=== PATIENT | female | born 1945 | race Caucasian/White ===

== ENCOUNTER → 2016-11-21 | Outpatient (CLI) | payer MEDICARE, BC ==
--- NOTE | 2016-11-22 06:35 | PN ---
Payal is coming in for an annual check regarding obstructive sleep apnea. She continues to have successful CPAP therapy with a pressure of 7 cm of water. She is using a Buck FX small size nose pillow. Her compliance is 100% and she is averaging around 7 to 8 hours of sleep ( ) every night. No complaints. No concerns. She had only 5 pounds of weight gain over the past one year. No new onset medical problems or comorbidities since her last evaluation. BP is 135/60, pulse 85, respirations 16, temperature 97.6. BMI 31. Weight is 181. Height is 5 feet 4 inches. Garland score 12. Saturation 97% on room air. GENERAL APPEARANCE: Calm, comfortable. HEENT: Negative for JVD. No goiter or neck mass. LUNGS: Clear to auscultation. HEART: Sounds regular rate and rhythm. Normal S1, S2. ABDOMEN: Soft, nontender. No organomegaly. EXTREMITIES: No edema, cyanosis or clubbing. IMPRESSION: 1. Obstructive sleep apnea, continues to receive successful CPAP therapy with a pressure of 7 cm of water. 2. Obesity with an interval 5-pound weight gain. The patient is status post bariatric surgery. 3. Pulmonary embolism, history of. 4. Congestive heart failure, history of. 5. Gastroesophageal reflux disease. 6. Hyperlipidemia. 7. Peripheral neuropathy. 8. Chronic back pain. PLAN: 1. Continue with CPAP therapy at the same level of pressure. 2. Renew her CPAP supplied. 3. See me back in a year's time, earlier if needed. DEVONTE
== END | disposition home or self-care (01) ==
LOC: SLEEP 16:13
PROVIDERS: ATTEND Internal Medicine Critical Care Medicine
DX: G47.33 Obstructive sleep apnea (adult) (pediatric) (principal); K21.9 Gastro-esophageal reflux disease without esophagitis; E66.9 Obesity, unspecified; E78.5 Hyperlipidemia, unspecified; G62.9 Polyneuropathy, unspecified; M54.9 Dorsalgia, unspecified; G89.29 Other chronic pain; Z86.711 Personal history of pulmonary embolism; Z86.79 Personal history of other diseases of the circulatory system

== ENCOUNTER → 2017-12-04 | Outpatient (CLI) | payer MEDICARE, BC ==
--- NOTE | 2017-12-04 18:38 | PN ---
PROGRESS NOTE Payal is 72 and she is coming in for her annual check regarding obstructive sleep apnea. The patient has AME and she is currently on CPAP at a pressure of 7 cm of water. She is still using a Buck FX small size nose pillow. Based on the compliance data, she is averaging around 5 hours and 42 minutes of CPAP use every night and her CPAP use for more than 4 hours is 29/30. Her weight is down from 181 to 173 and as such, the patient has lost approximately 8 pounds. She is doing well. She wakes up refreshed and alert during the day. No major hypersomnia or sleepiness during the day. No new onset medical problems and comorbidities. Her health has been essentially the same and the patient has been utilizing her CPAP without any major difficulties. She has history of pulmonary embolism and congestive heart failure, along with history of hyperlipidemia, peripheral neuropathy and chronic back pain. REVIEW OF SYSTEMS: A 12-point review of system was done. Positive findings are mentioned above history of present illness. BP is 113/55, pulse 80, respirations 16, temperature 97.9, saturation 95% on room air. BMI 30.1, Cary score is 7. GENERAL APPEARANCE: Calm, comfortable. Head is atraumatic normocephalic. NECK: Supple. There is no JVD. There is no goiter or neck mass. LUNGS: Clear to auscultation. HEART: Sounds are regular rate and rhythm. Normal S1, S2. No S3. No murmurs. ABDOMEN: Soft, nontender. No organomegaly. EXTREMITIES: No edema. No cyanosis or clubbing. NEUROLOGIC: Alert and oriented x3. There are no focal neurological deficits. PSYCHIATRIC: Negative for anxiety or depression. IMPRESSION: 1. Obstructive sleep apnea with successful CPAP therapy at a pressure of 7 cm of water with excellent clinical response and compliance. 2. Hypersomnia improved with CPAP therapy. 3. Pulmonary embolism, history of. 4. Congestive heart failure, history of. 5. Gastroesophageal reflux disease. 6. Hyperlipidemia. 7. Peripheral neuropathy and. 8. Chronic back pain. PLAN: 1. Continue CPAP at same level of pressure. No need for any adjustment as long as treatment remains successful and the machine is functional. 2. Renew the CPAP mask and supplies, including Buck FX small-sized nasal pillow. 3. Weight loss was noted. Implement good sleep hygiene measures. See me back in a few years' time in follow up, earlier if needed. MMEPIL / IJN: [id number] /
== END | disposition home or self-care (01) ==
LOC: SLEEP 15:40
PROVIDERS: ATTEND Internal Medicine Critical Care Medicine
DX: G47.33 Obstructive sleep apnea (adult) (pediatric) (principal); I26.99 Other pulmonary embolism without acute cor pulmonale; I50.9 Heart failure, unspecified; K21.9 Gastro-esophageal reflux disease without esophagitis; E78.5 Hyperlipidemia, unspecified; G62.9 Polyneuropathy, unspecified; G89.29 Other chronic pain; M54.9 Dorsalgia, unspecified; Z99.89 Dependence on other enabling machines and devices

== ENCOUNTER → 2018-10-24 | Outpatient (CLI) | payer MEDICARE ==
[2018-10-24 14:25] VITALS: BP 117/61; PULSE 84; RESP 18; TEMP 98.3; BMI 27.4
--- NOTE | 2018-10-24 15:15 | P.GSHP ---
History of Present Illness H&P Date: 10/24/18 Chief Complaint: Abnormal left breast mammogram The patient is a 73 year old white female who underwent routine screening mammogram was noted to have an area of microcalcification which was new in the 3 o'clock position of the left breast. The patient does not have any pain in her breast. She has no masses in her breast. She has no nipple discharge or skin changes. She states her last mammogram was a year ago and this did not show anything of concern. She did have an ultrasound performed as well which did not show any lesions of concern. Family history: 1.daughter (2): ovarian cancer Hormonal history: Menarche:7 , 7 miscarrages, breast fed: yes, first live : 13 menopause: 48 BCP: 4 years hormones: none Past past surgical history: 1. stomach bypass 2. gallbladder 3. appy 4. tonsil 5. leg fracture 6. left shoulder fx 7. carotid (right) Past Medical History; 1. ? diabetes, not treated 2. rapid heart beat/atrial fib 3. Reflux 4. history of Pulmonary embolism 5. sleep apnea 6. COPD 7. arthritis 8. 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, follows with spearer Cardiovascular: Reports high blood pressure - Respiratory Comment: asthma, COPD - Gastrointestinal Gastrointestinal: Reports diarrhea - Genitourinary (Female) Genitourinary: Denies dysuria, Denies hematuria - Menstruation Menstruation: Reports postmenopausal - Musculoskeletal Comment: arthritis, fibromyalgia Musculoskeletal: Reports myalgias - Integumentary Integumentary: Denies pruritus, Denies rash - Neurological Comment: Carotid endarterectomy Neurological: Denies numbness, Denies weakness - Psychiatric Psychiatric: Reports anxiety - Endocrine Endocrine: Reports fatigue, Denies weight change - Hematologic/Lymphatic Comment: Plavix - Allergic/Immunologic Allergic/Immunologic: Reports seasonal allergies Past Medical History Past Medical History: Atrial Fibrillation, COPD, Fibromyalgia, GERD/Reflux, Hypertension, Pneumonia, Pulmonary Embolus (PE), Rheumatoid Arthritis (RA), Sleep Apnea/CPAP/BIPAP, Vascular Disorder Additional Past Medical History / Comment(s): Tachycardia, PE in the 1970's, pneumonia x 4, migraines, hiatal hernia, loose stools, degenerative joint disease, anemia, peripheral artery disease,cpap, pre diabetic History of Any Multi-Drug Resistant Organisms: None Reported Past Surgical History: Appendectomy, Bariatric Surgery, Cholecystectomy, Hernia Repair, Hysterectomy, Orthopedic Surgery, Tonsillectomy Additional Past Surgical History / Comment(s): stomach bypass, left shoulder fx- pin, dariel cataracts, carotid endarectomy Past Anesthesia/Blood Transfusion Reactions: Motion Sickness Past Psychological History: No Psychological Hx Reported Smoking Status: Never smoker Past Alcohol Use History: None Reported Past Drug Use History: None Reported - Past Family History Daughter(s) Family Medical History: Cancer Father Family Medical History: Diabetes Mellitus Additional Family Medical History / Comment(s): alcoholism Mother Family Medical History: Deep Vein Thrombosis (DVT) Additional Family Medical History / Comment(s): None reported Medications and Allergies Home Medications Medication Instructions Recorded Confirmed Type Fluticasone Propionate [Flonase] 1 spray EA NOSTRIL DAILY PRN 04/21/14 10/18/18 History Gabapentin 300 mg PO QID 04/21/14 10/18/18 History Propranolol [Inderal] 40 mg PO QAM 04/21/14 10/18/18 History Ranitidine HCl [Zantac] 150 mg PO BID 04/21/14 10/18/18 History Atorvastatin [Lipitor] 80 mg PO HS 02/10/16 10/18/18 History Clopidogrel Bisulfate [Plavix] 75 mg PO DAILY 02/10/16 10/18/18 History Furosemide [Lasix] 40 mg PO QAM 02/10/16 10/18/18 History Multivit-Min/FA/Lycopen/Lutein 1 tab PO DAILY 02/10/16 10/18/18 History [Centrum Silver Tablet] Gilbert-3 Fatty Acids/Fish Oil [Fish 1 cap PO DAILY 02/10/16 10/18/18 History Oil 1,000 mg Softgel] Potassium Chloride [Klor-Con 10] 10 meq PO BID 02/10/16 10/18/18 History Fluticasone/Salmeterol [Advair 1 puff INHALATION RT-BID 12/04/16 06/14/19 History 250-50 Diskus] Cholecalciferol [Vitamin D3 (25 1,000 unit PO BID 10/18/18 10/18/18 History Mcg = 1000 Iu)] Allergies Allergy/AdvReac Type Severity Reaction Status Date / Time Penicillins AdvReac Severe Swelling Verified 10/24/18 14:27 house dust AdvReac SINUS PAIN Verified 10/24/18 14:27 smoke AdvReac Dyspnea Uncoded 10/24/18 14:27 Surgical - Exam Vital Signs Temp Pulse Resp BP Pulse Ox 98.3 F 84 18 117/61 97 10/24/18 14:18 10/24/18 14:18 10/24/18 14:18 10/24/18 14:18 10/24/18 14:18 BMI 27.4 - General well developed, well nourished, no distress - Eyes normal ocular movement - ENT poor dentition no hearing loss, no congestion - Neck no masses, trachea midline - Respiratory normal respiratory effort, clear to percussion, clear to auscultation - Cardiovascular Rhythm: regular Heart Sounds: normal: S1, S2 - Abdomen Abdomen: soft, non tender, no guarding, no rigid, no rebound - Integumentary normal turgor - Neurologic no disoriented, no combative - Musculoskeletal normal gait, normal posture - Psychiatric oriented to time, oriented to person, oriented to place, speech is normal, memory intact breast exam: right breast: Multi-positional exam no dominant masses or nodules of concern, fibrocystic changes Right axilla: No adenopathy of concern Left breast: Multiple positional exam no dominant masses or nodules of concern Left axilla: No adenopathy of concern Between the breast there is what appears to be seborrheic keratosis with some irritation BRA 40DDD Patient gets indentations in her shoulders from the weight of her breast and she also has back pain related to her large breast. Results Mammogram report reviewed Assessment and Plan Assessment: Impression: Past Medical History; 1. ? diabetes, not treated 2. rapid heart beat/atrial fib 3. Reflux 4. history of Pulmonary embolism 5. sleep apnea 6. COPD 7. arthritis 8. HTN 9. Abnormal mammogram left breast 10. Very large breasted consulting and back pain and shoulder notching 11. Fibrocystic breast changes Risks and benefits of stereotactic core biopsy discussed with the patient. She wishes to proceed. Plan: 1. Stereotactic core biopsy left breast 2. Patient would like to have breast reduction secondary to back pain and shoulder notching from the large size of her breast 3. Medical management of medical conditions 4. Patient will stop Plavix for 1 week prior to the stereotactic core biopsy have also recommended that she stop her fish oil, she should clear this with her medical doctor prior to stopping it Cc: Dr. Moses Sanz
== END | disposition home or self-care (01) ==
LOC: WWCWWP 13:17
PROVIDERS: ATTEND Surgery
DX: Z53.9 Procedure and treatment not carried out, unspecified reason (principal)

== ENCOUNTER 2018-11-01 12:47 | Day surgery (SDC) | payer BC, MEDICARE ==
[2018-11-01 13:03] VITALS: BP 133/67; PULSE 94; RESP 20; TEMP 97.7
--- NOTE | 2018-11-01 16:40 | US ---
EXAMINATION TYPE: US FNA thyroid first lesion DATE OF EXAM: 11/01/2018 COMPARISON: NONE HISTORY: Thyroid nodule. Maximal barrier technique was utilized. After informed consent, skin overlying the lesion was locali zed with ultrasound and the overlying skin prepped and draped. Ultrasound was utilized using sterile technique. Lidocaine was used for local anesthesia. Five passes with a 25-gauge needle were made int o the right-sided nodule and aspirated specimen was submitted to cytology. Following the procedure h emostasis achieved. No immediate complication. The patient discharged in stable condition. IMPRESSION: STATUS POST ULTRASOUND GUIDED FINE NEEDLE ASPIRATION OF THYROID NODULE, PATHOLOGY IS PEND ING. THIS PROCEDURE WAS PERFORMED BY THE UNDERSIGNED.
== END 2018-11-01 13:55 | disposition home or self-care (01) ==
LOC: RADPROMAIN 12:47
PROVIDERS: ATTEND Surgery Plastic and Reconstructive Surgery
DX: E04.1 Nontoxic single thyroid nodule (principal); Z88.0 Allergy status to penicillin
CPT/HCPCS: 10005; 88173; 88305

== ENCOUNTER → 2018-11-21 | Day surgery (SDC) | payer MEDICARE ==
[2018-11-21 07:28] VITALS: RESP 16; TEMP 97.7; BMI 65.2
--- NOTE | 2018-11-21 08:47 | P.PCN ---
Date of Procedure: 11/21/18 Preoperative Diagnosis: Mammographic abnormality left breast Postoperative Diagnosis: Same Procedure(s) Performed: Stereotactic core biopsy left breast Anesthesia: local Surgeon: Bessie Vila Estimated Blood Loss (ml): 1 Pathology: other (Breast tissue) Condition: stable Disposition: same day Indications for Procedure: Course in fine microcalcifications left breast 3:00 which are suspicious Operative Findings: Breast tissue with calcifications Description of Procedure: The patient is a 73-year-old white female who on mammogram was noted to have coarse and fine calcifications considered suspicious at the 3 o'clock position of the left breast. The patient was recommended to undergo a stereotactic core biopsy. The risks and benefits of the procedure were discussed with the patient and she wished to proceed. The patient was taken to the stereotactic core room. She was positioned on the stereotactic table. A lateral to medial approach was utilized. A photographic restorer film was obtained which revealed the area of concern. Sterile probe was then obtained. The lesion was targeted. The breast was prepped using Betadine. 20 mL of 1% lidocaine were used to anesthetize the area. A 9-gauge vacuum assisted rotating core biopsy needle was driven to the correct coordinates. The needle was fired. Post fire films were obtained. The needle was noted to be in the correct location. Core biopsies from the 3 to 9 o'clock position with 2 samples at the 12 o'clock position were obtained. 7 cores were obtained in total. Radiograph of the specimen revealed the area of concern had been sampled. Microcalcifications were present in the specimen. A secure marked top Marker was left in place. The specimen was sent to pathology. The patient tolerated procedure in stable condition. The patient will follow-up with Dr. Galindo next week. Cc Dr. Moses Sanz
[2018-11-21 09:17] VITALS: BP 115/71; PULSE 73
--- NOTE | 2018-11-21 09:29 | MM ---
EXAMINATION TYPE: MG stereo VAD BX LT DATE OF EXAM: 11/21/2018 COMPARISON: Outside mammogram Sep 11 2018 and older mammograms. CLINICAL HISTORY: Abnormal mammogram TECHNIQUE: Stereotactic guided core biopsy of left breast with clip placement and follow-up two-view mammogram. FINDINGS: The procedure of stereotactic guided core biopsy was explained to the patient. Benefits, alternatives, and risks were discussed. An informed consent was then obtained. [facility]. Shortness pathway was lateral approach. I performed the localization, then surgeon, Dr. Vila performed the remainder of the procedure. A vacuum assisted biopsy gun was used to obtain multiple core samples. The patient tolerated the procedure well without any immediate complication. The patient was kept in the radiology department for short stay after the procedure and then discharged home in stable condition. Targeted calcifications are identified in specimen mammogram. Post biopsy mammogram shows the clip to appear in satisfactory position relative to the targeted area of concern on the preprocedure images. Few residual adjacent calcifications remain present on CC view. IMPRESSION: SUCCESSFUL, UNCOMPLICATED STEREOTACTIC GUIDED CORE BIOPSY OF AREA OF CONCERN IN THE LEFT BREAST, FULL PATHOLOGY RESULTS TO FOLLOW. Intermediate index of suspicion noted at time of procedure. Pathology Results: Benign LEFT BREAST, STEREOTACTIC CORE BIOPSY: Fibrocystic changes including fibroadenomatoid hyperplasia with calcifications. Recommendation Follow up mammogram of the left breast in 6 months. DEVONTE
== END ==
LOC: RADMAMWWP 06:49
PROVIDERS: ATTEND Surgery
DX: N60.12 Diffuse cystic mastopathy of left breast (principal); N62 Hypertrophy of breast; R92.1 Mammographic calcification found on diagnostic imaging of breast; Z88.0 Allergy status to penicillin
CPT/HCPCS: 88305; 19081; A4648; J2001

== ENCOUNTER → 2018-11-29 | Outpatient (CLI) | payer MEDICARE ==
--- NOTE | 2018-11-29 10:11 | P.PN ---
Subjective Progress Note Date: 11/29/18 The patient is a 73-year-old white female status post left breast stereotactic core biopsy and 1980[address]. Pathology revealed fibrocystic changes including fibroadenomatoid hyperplasia with calcifications. Patient complains of some mild ecchymosis at the site with some swelling. She has had no fever or chills. Family history: 2 Daughters: Ovarian cancer Sister: Breast cancer Past surgical history: 1. Stomach bypass 2. Cholecystectomy 3. Appendectomy 4. Tonsillectomy 5. Leg fracture 6. Left shoulder fracture 7. Carotid weight Medical history: 1. Questionable diabetes 2. Atrial flutter 3. Reflux 4. Pulmonary embolism 5. Sleep apnea 6. COPD 7. Arthritis 8. Hypertension Social history: Smoke: Negative A call: Negative Drugs: Negative Objective - Exam BMI 29.2 - Constitutional General appearance: Present: average body habitus - EENT Eyes: Present: EOMI ENT: Present: hearing grossly normal - Respiratory Respiratory: bilateral: CTA - Cardiovascular Heart sounds: normal: S1, S2 - Integumentary Integumentary: Present: normal turgor - Musculoskeletal Musculoskeletal: Present: gait normal - Psychiatric Psychiatric: Present: A&O x's 3, appropriate affect, intact judgment & insight - Additional findings Additional findings: Left breast exam: Mild ecchymosis at site of biopsy, hematoma at this site approximately 4 x 3 cm in size No evidence of any infection Assessment and Plan Assessment: Impression: 1. Questionable diabetes 2. Atrial flutter 3. Reflux 4. Pulmonary embolism 5. Sleep apnea 6. COPD 7. Arthritis 8. Hypertension 9. Patient is restarting Plavix 10. Core biopsy fibrocystic breast changes We have discussed the results of her core biopsy. There is no evidence of any cancer or precancer. The patient will have follow-up mammogram of the left side in 6 months with physician exam at that time. Plan: 1. Restart Plavix 2. Medical management of medical conditions 3. Left breast mammogram and physician exam in 6 months Cc: Dr. Moses Sanz
== END | disposition home or self-care (01) ==
DX: Z53.9 Procedure and treatment not carried out, unspecified reason (principal)

== ENCOUNTER → 2019-01-16 | Outpatient (CLI) | payer MEDICARE ==
[2019-01-17 01:45] LABS: T4, Free (Free Thyroxine) 0.9 ng/dL (0.80-1.80)
== END | disposition home or self-care (01) ==
LOC: LABWHC1 14:26
PROVIDERS: ATTEND Internal Medicine
DX: E04.2 Nontoxic multinodular goiter (principal)
CPT/HCPCS: 36415; 84439; 84443

== ENCOUNTER → 2019-05-30 | Outpatient (CLI) | payer MEDICARE ==
--- NOTE | 2019-05-30 09:16 | MM ---
Reason for exam: follow-up at short interval from prior study. Last mammogram was performed 21 years and 1 month ago. History: Patient is postmenopausal. Benign MG stereo VAD BX LT of the left breast, November 21, 2018. Took estrogen for 1 year 6 months. Physical Findings: Nurse did not find any significant physical abnormalities on exam. MG 3D Diag Mammo W/Cad LT CC and MLO view(s) were taken of the left breast. Prior study comparison: September 11, 2018, mammogram. September 04, 2018, mammogram. March 08, 2017, mammogram. March 02, 2017, mammogram. The breast tissue is heterogeneously dense. This may lower the sensitivity of mammography. There are benign appearing round calcifications in the left breast. Previous mammotome biopsy in the left breast. There is no discrete abnormality. These results were verbally communicated with the patient and result sheet given to the patient on 05/30/19. ASSESSMENT: Benign, BI-RAD 2 RECOMMENDATION: Routine screening mammogram of both breasts in 6 months. Back on schedule.
== END | disposition home or self-care (01) ==
LOC: RADMAMWWP 06:51
PROVIDERS: ATTEND Surgery
DX: R92.8 Other abnormal and inconclusive findings on diagnostic imaging of breast (principal)
CPT/HCPCS: 77065; G0279; 77061

== ENCOUNTER → 2019-07-10 | Outpatient (CLI) | payer MEDICARE ==
--- NOTE | 2019-07-03 09:33 | P.PN ---
Progress Note - Text Progress Note Date: 07/03/19 Patient is a 73-year-old [place] [id number]. She had a repeat left breast mammogram performed for 6 month follow-up [id number]. This was benign BIRADS 2. The patient lives approximately an hour away and there was a considerable snow last evening making the roads snowy and icy. The patient has requested rescheduling her appointment. I have talked to over this phone. She understands that the results of the mammogram with benign BIRADS 2. She also states does not have any complaints related to her breasts. She is going to reschedule this appointment.
[2019-07-10 12:34] VITALS: BP 120/74; PULSE 72; RESP 18; TEMP 97.6
--- NOTE | 2019-07-10 12:55 | P.PN ---
Subjective Progress Note Date: 07/10/19 Principal diagnosis: Surveillance status post left breast stereotactic core biopsy November 2018 The patient is a 73-year-old white female status post left breast stereotactic core biopsy on . Pathology revealed fibrocystic changes including fibroadenomatoid hyperplasia with calcifications. The patient underwent her 6 month repeat left breast mammogram on 53 420. This was a benign BIRADS 2. The patient does not have any complaints related to the procedure. She was i nitially scheduled for postoperative visit on 220 720 but was unable to come to that appointment secondary to poor weather. Family history: 2 Daughters: Ovarian cancer Sister: Breast cancer Hormonal History: menarche: 7 , 7 miscarriages, breast fed: yes, first born at 13 menopause: 53 BCP: 4 years hormones: none Past surgical history: 1. Stomach bypass 2. Cholecystectomy 3. Appendectomy 4. Tonsillectomy 5. Leg fracture 6. Left shoulder fracture 7. Carotid artery Medical history: 1. Questionable diabetes 2. Atrial flutter 3. Reflux 4. Pulmonary embolism 5. Sleep apnea 6. COPD 7. Arthritis 8. Hypertension ROS: HEENT: none lung: asthma, pulmonary embolism heart: atrial flutter GI: Gastric bypass/reversal Musculoskeletal: arthritis neurologic: numbness tops of legs Psychiatric: Anxiety/depression Endocrine: diabetes diet controlled Allergies: as per HPI/seasonal ALLERGIES Hematologic: Plavix Social history: Smoke: Negative A call: Negative Drugs: Negative Objective - Vital Signs Vital signs: Vital Signs Temp 97.6 F 07/10/19 12:32 Pulse 72 07/10/19 12:32 Resp 18 07/10/19 12:32 BP 120/74 07/10/19 12:32 Pulse Ox 95 07/10/19 12:32 Intake & Output 07/09/19 07/10/19 07/10/19 18:59 06:59 18:59 Weight 77.111 kg - Exam BMI 29.6 - Constitutional General appearance: Present: average body habitus - EENT Eyes: Present: EOMI ENT: Present: hearing grossly normal - Neck Neck: Present: normal ROM - Respiratory Respiratory: bilateral: CTA - Cardiovascular Rhythm: regular Heart sounds: normal: S1, S2 - Gastrointestinal Gastrointestinal Comment(s): no guarding or rebound General gastrointestinal: Present: normal bowel sounds, soft - Integumentary Integumentary: Present: normal turgor - Musculoskeletal Musculoskeletal: Present: gait normal - Psychiatric Psychiatric: Present: A&O x's 3, appropriate affect, intact judgment & insight - Additional findings Additional findings: breast exam: BRA 38E ptosis grade 3 inspection: moles between the breast non-worrisome nipples no inversion, no lesions of concern Palpation: Right breast: Multi-positional exam fibrocystic changes no dominant masses or nodules of concern Right axilla: No adenopathy of concern Left breast: Multiple positional exam no dominant masses or nodules of concern Left axilla: No adenopathy of concern Assessment and Plan Assessment: Impression: 1. Macromastia 2. Back pain 3. Shoulder notching 4. Fibrocystic breast changes 5. Recent repeat left breast mammogram BIRADS 2 6. Questionable diabetes 7. Atrial flutter 8. Reflux 9. Pulmonary embolism 10. Sleep apnea 11. COPD 12. Arthritis 13. Hypertension Plan: 1. Repeat bilateral mammogram in 6 months for physician exam at that time 2. Medical management of medical conditions 3. Patient to see plastic surgery regarding bilateral breast reduction secondary to macromastia/back pain/shoulder notching Cc: Dr. Moses Sanz encounter 20 minutes > 50% of time in planning and counselling Time with Patient: Less than 30
== END ==
LOC: WWCWWP 12:20
PROVIDERS: ATTEND Surgery
DX: Z53.9 Procedure and treatment not carried out, unspecified reason (principal)

== ENCOUNTER → 2019-12-01 | Outpatient (CLI) | payer MEDICARE ==
--- NOTE | 2019-12-04 15:15 | MM ---
Reason for exam: screening (asymptomatic). Last mammogram was performed 6 months ago. History: Patient is postmenopausal. Family history of breast cancer in sister at age 70. Benign MG stereo VAD BX LT of the left breast, November 21, 2018. Took hormonal contraceptives for 8 years. Took estrogen for 1 year 6 months. Physical Findings: A clinical breast exam by your physician is recommended on an annual basis and results should be correlated with mammographic findings. MG 3D Screening Mammo W/Cad Bilateral CC and MLO view(s) were taken. Prior study comparison: May 30, 2019, left breast MG 3d diag mammo w/cad LT. September 11, 2018, mammogram. March 02, 2017, mammogram. There are scattered fibroglandular densities. No significant changes when compared with prior studies. ASSESSMENT: Benign, BI-RAD 2 RECOMMENDATION: Routine screening mammogram of both breasts in 1 year.
== END | disposition home or self-care (01) ==
LOC: RADMAMWWP 09:23
PROVIDERS: ATTEND Surgery
DX: Z12.31 Encounter for screening mammogram for malignant neoplasm of breast (principal)
CPT/HCPCS: 77063; 77067

== ENCOUNTER → 2019-12-05 | Outpatient (CLI) | payer MEDICARE ==
--- NOTE | 2019-12-05 13:28 | P.PN ---
Subjective Progress Note Date: 12/05/19 Principal diagnosis: Fibrocystic breast changes The patient is a 73 year old white female who underwent routine screening mammogram was noted to have an area of microcalcification which was new in the 3 o'clock position of the left breast. This resulted in a stero biopsy November 2018. Her pathology was benign. She had a repeat left breast mammogram on 05-30-19 which was benign. She most recently had a bilateral mammogram performed on 720 720. This was benign BIRADS 2. The patient does not have any pain in her breast. She has no masses in her breast. She has no nipple discharge or skin changes. She does complain of back pain related to the size of her breasts. She also complains of bilateral shoulder notching from her bra related to the size of her breast. Family history: 1.daughter (2): ovarian cancer Hormonal history: Menarche:7 , 7 miscarrages, breast fed: yes, first live : 13 menopause: 48 BCP: 4 years hormones: none Past past surgical history: 1. stomach bypass 2. gallbladder 3. appy 4. tonsil 5. leg fracture 6. left shoulder fx 7. carotid (right) Past Medical History; 1. ? diabetes, not treated 2. rapid heart beat/atrial fib 3. Reflux 4. history of Pulmonary embolism 5. sleep apnea 6. COPD 7. arthritis 8. 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, follows with manager regional Cardiovascular: Reports high blood pressure - Respiratory Comment: asthma, COPD - Gastrointestinal Gastrointestinal: Reports diarrhea - Genitourinary (Female) Genitourinary: Denies dysuria, Denies hematuria - Menstruation Menstruation: Reports postmenopausal - Musculoskeletal Comment: arthritis, fibromyalgia Musculoskeletal: Reports myalgias - Integumentary Integumentary: Denies pruritus, Denies rash - Neurological Comment: Carotid endarterectomy Neurological: Denies numbness, Denies weakness - Psychiatric Psychiatric: Reports anxiety - Endocrine Endocrine: Reports fatigue, Denies weight change - Hematologic/Lymphatic Comment: Plavix - Allergic/Immunologic Allergic/Immunologic: Reports seasonal allergies Objective - Vital Signs Vital signs: Intake & Output 12/04/19 12/05/19 12/05/19 18:59 06:59 18:59 Weight 78.018 kg - Exam BMI 29.1 - Constitutional General appearance: Present: average body habitus - EENT Eyes: Present: EOMI ENT: Present: hearing grossly normal - Neck Neck: Present: normal ROM - Respiratory Respiratory: bilateral: CTA - Cardiovascular Rhythm: regular Heart sounds: normal: S1, S2 - Gastrointestinal General gastrointestinal: Present: normal bowel sounds, soft - Integumentary Integumentary: Present: normal turgor - Musculoskeletal Musculoskeletal: Present: gait normal - Psychiatric Psychiatric: Present: A&O x's 3, appropriate affect, intact judgment & insight - Additional findings Additional findings: Breast exam: BRA 38E inspection: bilateral ptosis grade 2/3 palpation: right breast: Multi-positional exam no dominant masses or nodules of concern, dense breast fibrocystic changes Right axilla: No adenopathy of concern Left breast: Multi-positional exam dense breast, fibrocystic changes no dominant masses or nodules of concern Left axilla: No adenopathy of concern Assessment and Plan Assessment: Mammogram results reviewed benign BIRADS 2 Impression: 1. Macromastia 2. Back pain and shoulder notching related to the size of the breast 3. Dense fibrocystic breast to changes 4. COPD Plan: 1. Referral to plastic surgery/patient has declined at this time 2. Medical management of COPD 3. Bilateral mammogram in 1 year with physician exam at that time CC: Dr. Moses Sanz encounter 20 minutes, > 50% of time in planning and counselling
== END | disposition home or self-care (01) ==
LOC: WWCWWP 12:57
PROVIDERS: ATTEND Surgery
DX: Z53.9 Procedure and treatment not carried out, unspecified reason (principal)

== ENCOUNTER → 2021-01-06 | Outpatient (CLI) | payer MEDICARE ==
[2021-01-06 13:58] VITALS: BP 141/64; PULSE 74; RESP 24; TEMP 97.8
--- NOTE | 2021-01-06 14:16 | P.PN ---
Subjective Progress Note Date: 01/06/21 Principal diagnosis: fibrocystic breast disease Fibrocystic breast changes The patient is a 75 year old white female who underwent routine screening mammogram was noted to have an area of microcalcification which was new in the 3 o'clock position of the left breast. This resulted in a stero biopsy November 2018. Her pathology was benign. She had a repeat left breast mammogram on 05-30-19 which was benign. She most recently had a bilateral mammogram performed on 08-19-20. This was benign BIRADS 2. The patient does not have any pain in her breast. She has no masses in her breast. She has no nipple discharge or skin changes. She does complain of back pain related to the size of her breasts. She also complains of bilateral shoulder notching from her bra related to the size of her breast. Family history: 1.daughter : ovarian cancer 2. second daughter: cancer ? cancer 3. sister: breast cancer Hormonal history: Menarche:7 , 7 miscarrages, breast fed: yes, first live : 13 menopause: 48 BCP: 4 years hormones: none Past past surgical history: 1. stomach bypass 2. gallbladder 3. appy 4. tonsil 5. leg fracture 6. left shoulder fx 7. carotid (right) Past Medical History; 1. ? diabetes, not treated and resolved 2. rapid heart beat/atrial fib 3. Reflux 4. history of Pulmonary embolism 5. sleep apnea 6. COPD 7. arthritis 8. 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 Cardiovascular: Reports high blood pressure - Respiratory Comment: asthma, COPD - Gastrointestinal Gastrointestinal: Reports diarrhea - Genitourinary (Female) Genitourinary: Denies dysuria, Denies hematuria - Menstruation Menstruation: Reports postmenopausal - Musculoskeletal Comment: arthritis, fibromyalgia Musculoskeletal: Reports myalgias - Integumentary Integumentary: Denies pruritus, Denies rash - Neurological Comment: Carotid endarterectomy Neurological: Denies numbness, Denies weakness - Psychiatric Psychiatric: Reports anxiety - Endocrine Endocrine: Reports fatigue, Denies weight change - Hematologic/Lymphatic Comment: Plavix - Allergic/Immunologic Allergic/Immunologic: Reports seasonal allergies Objective - Vital Signs Vital signs: Vital Signs Temp 97.8 F 01/06/21 13:55 Pulse 74 01/06/21 13:55 Resp 24 01/06/21 13:55 BP 141/64 01/06/21 13:55 Pulse Ox 97 01/06/21 13:55 Intake & Output 01/05/21 01/06/21 01/06/21 18:59 06:59 18:59 Weight 80.739 kg - Exam BMI 30.6 - Constitutional General appearance: Present: cooperative - EENT Eyes: Present: EOMI ENT: Present: hearing grossly normal - Neck Neck: Present: normal ROM - Respiratory Respiratory: bilateral: CTA - Cardiovascular Rhythm: regular Heart sounds: normal: S1, S2 - Gastrointestinal General gastrointestinal: Present: soft - Integumentary Integumentary: Present: normal turgor - Musculoskeletal Musculoskeletal: Present: gait normal - Psychiatric Psychiatric: Present: A&O x's 3, appropriate affect, intact judgment & insight - Additional findings Additional findings: Breast Exam: BRA: 40E inspection: bilateral grade 3 ptosis palpation: right breast: Larger than left breast, multiple positional exam no dominant masses or nodules of concern, fibrocystic changes Right axilla: No adenopathy of concern Left breast: Multi-positional exam fibrocystic changes, no dominant masses or nodules of concern Left axilla: No adenopathy of concern Assessment and Plan Assessment: Impression: 1. ? diabetes, not treated; resolved 2. rapid heart beat/atrial fib 3. Reflux 4. history of Pulmonary embolism 5. sleep apnea 6. COPD 7. arthritis 8. HTN 9. Fibrocystic breast changes 10. Bilateral mammogram in 08/19/2020 benign BIRADS 2 11. Symptomatic macromastia Plan: 1. Fibrocystic breast changes/repeat bilateral mammogram in 1 year with physician exam at that time 2. Patient will consider if she would like to see a plastic surgeon regarding the macromastia Cc: Dr. Sanz
== END | disposition home or self-care (01) ==
LOC: WWCWWP 13:39
PROVIDERS: ATTEND Surgery
DX: Z53.9 Procedure and treatment not carried out, unspecified reason (principal)

== ENCOUNTER 2021-05-27 10:54 | Day surgery (SDC) | payer MEDICARE ==
[2021-05-26 12:26] VITALS: BMI 28.9
[~2021-05-27 10:54] MED LIST: LACTATED RINGERS 1,000 ML IV SCH
[2021-05-27] MEDS ORDERED: LIDOCAINE 1% (10MG/ML) FOR IV START INTRADERMA ONE (11:29)
[2021-05-27 11:34] VITALS: RESP 16; TEMP 97
[2021-05-27] MEDS ORDERED: LIDOCAINE 1% INJ 10MG/ML (20 ML MDV) ONE (13:07)
[2021-05-27] MEDS ORDERED: PROPOFOL 10 MG/ML 20 ML VIAL IV ONE (13:07)
--- NOTE | 2021-05-27 13:30 | P.PCN ---
Date of Procedure: 05/27/21 Procedure(s) Performed: BRIEF HISTORY: Patient is a 75-year-old pleasant white female scheduled for an elective colonoscopy as a part of chronic diarrhea for the last 1 year duration. She has bowel movements daily from 5-6 a day which are loose to watery in consistency but no blood or mucus in the stool. Her last colonoscopy was 5 years ago. PROCEDURE PERFORMED: Colonoscopy with biopsy. PREOPERATIVE DIAGNOSIS: Chronic diarrhea of 1 year duration. IV sedation per Anesthesia. PROCEDURE: After informed consent was obtained, the patient, was brought into the endoscopy unit. IV sedation was administered by Anesthesia under continuous monitoring. Digital rectal moderate to severe any difficulty. Careful examination was performed as the scope was gradually being withdrawn. Ileocecal valve and the appendiceal orifice were visualized and appeared normal. Prep was excellent. Mucosa of the cecum, ascending colon, transverse colon, descending colon, sigmoid colon, and rectum appeared normal. Random biopsies were done from ascending and descending colon to rule out microscopic/collagenous colitis. Retroflexion was performed in the rectum and no lesions were seen. The patient tolerated the procedure well. IMPRESSION: Normal-appearing colon from rectum to cecum with no evidence of colitis or colorectal neoplasia . RECOMMENDATIONS: Findings of this examination were discussed with the patient and family. She was advised to follow with the biopsy results. She'll be seen in office in 2-3 weeks from now..
[2021-05-27 14:11] VITALS: BP 146/77; PULSE 71
== END 2021-05-27 14:32 | disposition home or self-care (01) ==
LOC: ORWHC2ENDO 10:54
PROVIDERS: ATTEND Internal Medicine Gastroenterology
DX: R19.7 Diarrhea, unspecified (principal)
CPT/HCPCS: 45380; 88305; J2001; J2704

== ENCOUNTER → 2021-08-22 | Outpatient (CLI) | payer MEDICARE ==
--- NOTE | 2021-08-24 08:38 | MM ---
Reason for exam: screening (asymptomatic). Last mammogram was performed 1 year and 9 months ago. History: Patient is postmenopausal. Family history of breast cancer in sister at age 70. Benign MG stereo VAD BX LT of the left breast, November 21, 2018. Took hormonal contraceptives for 8 years. Took estrogen for 1 year 6 months. Physical Findings: A clinical breast exam by your physician is recommended on an annual basis and results should be correlated with mammographic findings. MG 3D Screening Mammo W/Cad Bilateral CC and MLO view(s) were taken. Prior study comparison: December 01, 2019, bilateral MG 3d screening mammo w/cad. May 30, 2019, left breast MG 3d diag mammo w/cad LT. There are scattered fibroglandular densities. Finding: There are new heterogeneous, grouped/clustered calcifications in the upper outer quadrant, middle position of the left breast, this is new but not at a prior biopsy. Previous mammotome biopsy in the left breast. New finding since December 01, 2019 and May 30, 2019. ASSESSMENT: Incomplete: need additional imaging evaluation, BI-RAD 0 RECOMMENDATION: Special view mammogram of the left breast. [facility] will attempt to contact patient to return for supplemental views.
== END | disposition home or self-care (01) ==
LOC: RADMAMWWP 10:50
PROVIDERS: ATTEND Surgery
DX: Z12.31 Encounter for screening mammogram for malignant neoplasm of breast (principal)
CPT/HCPCS: 77063; 77067

== ENCOUNTER → 2021-08-25 | Outpatient (CLI) | payer MEDICARE ==
--- NOTE | 2021-08-25 12:39 | MM ---
Reason for exam: additional evaluation requested from abnormal screening. Last mammogram was performed less than 1 month ago. History: Patient is postmenopausal. Family history of breast cancer in sister at age 70. Benign MG stereo VAD BX LT of the left breast, November 21, 2018. Took hormonal contraceptives for 8 years. Took estrogen for 1 year 6 months. Physical Findings: A clinical breast exam by your physician is recommended on an annual basis and results should be correlated with mammographic findings. MG 3D Work Up W/Cad LT CC with magnification, LM with magnification, and LM view(s) were taken of the left breast. Prior study comparison: August 22, 2021, bilateral MG 3d screening mammo w/cad. December 01, 2019, bilateral MG 3d screening mammo w/cad. There are scattered fibroglandular densities. Finding: There are typically benign, indeterminate, coarse calcifications in the left breast at site of previous biopsy. Results were given to the patient verbally at the time of the exam. ASSESSMENT: Probably benign, BI-RAD 3 RECOMMENDATION: Follow-up diagnostic mammogram of the left breast in 6 months.
== END | disposition home or self-care (01) ==
LOC: RADMAMWWP 09:55
PROVIDERS: ATTEND Surgery
DX: R92.8 Other abnormal and inconclusive findings on diagnostic imaging of breast (principal)
CPT/HCPCS: 77065; G0279; 77061

== ENCOUNTER → 2021-08-26 | Outpatient (CLI) | payer MEDICARE ==
[2021-08-26 13:58] VITALS: BP 125/77; PULSE 92; RESP 14
--- NOTE | 2021-08-26 14:16 | P.PN ---
Subjective Progress Note Date: 08/26/21 Principal diagnosis: abnormal left breast mammogram Fibrocystic breast changes The patient is a 76 year old white female who underwent routine screening mammogram was noted to have an area of microcalcification which was new in the 3 o'clock position of the left breast. This resulted in a stero biopsy November 2018. Her pathology was benign. She had a repeat left breast mammogram on 05-30-19 which was benign. She had a bilateral mammogram performed on 08-19-20. This was benign BIRADS 2. The patients most recent bilateral mammogram was on 08-22-21. Additional views of the left breast were done. This showed increased, new calcifications near but not at the same spot as the prior benign biopsy. The patient does not have any pain in her breast. She has no masses in her breast. She has no nipple discharge or skin changes. She does complain of back pain related to the size of her breasts. She also complains of bilateral shoulder notching from her bra related to the size of her breast. Family history: 1.daughter : ovarian cancer 2. second daughter: cancer ? cancer 3. sister: breast cancer Hormonal history: Menarche:7 , 7 miscarrages, breast fed: yes, first live : 13 menopause: 48 BCP: 4 years hormones: none Past past surgical history: 1. stomach bypass 2. gallbladder 3. appy 4. tonsil 5. leg fracture 6. left shoulder fx 7. carotid (right) 8. colonoscopy Past Medical History; 1. ? diabetes, not treated and resolved 2. rapid heart beat/atrial fib 3. Reflux 4. history of Pulmonary embolism 5. sleep apnea 6. COPD 7. arthritis 8. HTN 9. Diarrhea 10. 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 Cardiovascular: Reports high blood pressure - Respiratory Comment: asthma, COPD - Gastrointestinal Gastrointestinal: Reports diarrhea - Genitourinary (Female) Genitourinary: Denies dysuria, Denies hematuria - Menstruation Menstruation: Reports postmenopausal - Musculoskeletal Comment: arthritis, fibromyalgia Musculoskeletal: Reports myalgias - Integumentary Integumentary: Denies pruritus, Denies rash - Neurological Comment: Carotid endarterectomy Neurological: Denies numbness, Denies weakness - Psychiatric Psychiatric: Reports anxiety - Endocrine Endocrine: Reports fatigue, Denies weight change - Hematologic/Lymphatic Comment: Plavix - Allergic/Immunologic Allergic/Immunologic: Reports seasonal allergies Objective - Vital Signs Vital signs: Vital Signs Temp Pulse 92 08/26/21 13:53 Resp 14 08/26/21 13:53 BP 125/77 08/26/21 13:53 Pulse Ox 96 08/26/21 13:53 Intake & Output 08/25/21 08/26/21 08/26/21 18:59 06:59 18:59 Weight 78.018 kg - Exam BMI: 29.5 - Constitutional General appearance: Present: cooperative - EENT Eyes: Present: EOMI ENT: Present: hearing grossly normal - Neck Neck: Present: normal ROM - Respiratory Respiratory: bilateral: CTA - Cardiovascular Rhythm: regular Heart sounds: normal: S1, S2 - Gastrointestinal General gastrointestinal: Present: soft - Integumentary Integumentary: Present: normal turgor - Musculoskeletal Musculoskeletal: Present: gait normal - Psychiatric Psychiatric: Present: A&O x's 3, appropriate affect, intact judgment & insight - Additional findings Additional findings: Breast Exam: BRA: 40E inspection: bilateral grade 3 ptosis palpation: right breast: Positional exam fibrocystic changes no dominant masses or nodules of concern Right axilla: No adenopathy of concern Left breast: Multi-positional exam fibrocystic changes no dominant masses or nodules of concern Left axilla: No adenopathy of concern Assessment and Plan Assessment: Impression: 1. ? diabetes, not treated and resolved 2. rapid heart beat/atrial fib 3. Reflux 4. history of Pulmonary embolism 5. sleep apnea 6. COPD 7. arthritis 8. HTN 9. Diarrhea 10. gallbladder 11. Abnormal left breast mammogram calcifications upper outer quadrant in vicinity of prior biopsy but not exactly at the site Plan: Stereotactic core biopsy left breast; the patient does not take any blood thinners Risk and benefits of the procedure discussed with the patient. She understands and wishes to proceed. Wished risks include but are not limited to bleeding, infection, reaction to the anesthetic. CC: Dr. Sanz
== END | disposition home or self-care (01) ==
LOC: WWCWWP 13:45
PROVIDERS: ATTEND Surgery
DX: Z53.9 Procedure and treatment not carried out, unspecified reason (principal)

== ENCOUNTER → 2022-03-27 | Outpatient (CLI) | payer MEDICARE ==
--- NOTE | 2022-03-27 13:48 | MM ---
Reason for Exam: Follow-up at short interval from prior study. Last screening mammogram was performed 7 month(s) ago. Patient History: Menarche at age 7. First Full-Term at age 12. Hysterectomy at age 47. Postmenopausal. Previous Hyperplasia w/o Atypia at age 76. Estrogen for 1 year, 6 months. Patient used Hormonal Contraceptives for 8 years. 09/22/2021, Benign MG stereo VAD BX LT on the left side. 11/21/2018, Benign Core Biopsy on the left side. Sister had breast cancer, age 70. Risk Values: Ryanne 5 year model risk: 5.2%. NCI Lifetime model risk: 9.2%. Prior Study Comparison: 03/08/2017 Screening Mammogram, Unknown. 09/04/2018 Screening Mammogram, Unknown. 09/11/2018 Screening Mammogram, Unknown. 05/30/2019 Left Diagnostic Mammogram, [facility]. 12/01/2019 Bilateral Screening Mammogram, [facility]. 08/22/2021 Bilateral Screening Mammogram, [facility]. 08/25/2021 Left Diagnostic Mammogram, [facility]. Tissue Density: Left: The breast tissue is heterogeneously dense. This may lower the sensitivity of mammography. Findings: Analyzed By CAD. Postbiopsy clips are in place. No suspicious clusters seen. No evidence for mass or distortion. Overall Assessment: Benign, BI-RAD 2 Management: Screening Mammogram of both breasts in 6 months. A clinical breast exam by your physician is recommended on an annual basis and results should be correlated with mammographic findings. This exam should not preclude additional follow-up of suspicious palpable abnormalities. Results were given to the patient verbally at the time of exam. Electronically signed and approved by: Griffin Parks M.D. Radiologis
== END | disposition home or self-care (01) ==
LOC: RADMAMWWP 12:56
PROVIDERS: ATTEND Surgery
DX: R92.8 Other abnormal and inconclusive findings on diagnostic imaging of breast (principal); Z78.0 Asymptomatic menopausal state; Z80.3 Family history of malignant neoplasm of breast
CPT/HCPCS: 77065; G0279; 77061

== ENCOUNTER → 2022-04-06 | Outpatient (CLI) | payer MEDICARE ==
[2022-04-06 15:43] VITALS: BP 114/76; PULSE 73; RESP 13; TEMP 97.9
--- NOTE | 2022-04-06 16:06 | P.PN ---
Subjective Progress Note Date: 04/06/22 Principal diagnosis: fibrocystic breast changes Fibrocystic breast changes The patient is a 76 year old white female who underwent routine screening mammogram was noted to have an area of microcalcification which was new in the 3 o'clock position of the left breast. This resulted in a stero biopsy November 2018. Her pathology was benign. She had a repeat left breast mammogram on 05-30-19 which was benign. She had a bilateral mammogram performed on 08-19-20. This was benign BIRADS 2. The patients most recent bilateral mammogram was on 08-22-21. Additional views of the left breast were done. This showed increased, new calcifications near but not at the same spot as the prior benign biopsy. She underwent a stero core biopsy of the area of concern in . Pathology revealed benign breast tissue with fibroadenomatoid stromal hyperplasia and focal microcalcification. She underwent a repeat left breast mammogram and 1120 122. This was benign BIRADS 2 The patient does not have any pain in her breast. She has no masses in her breast. She has no nipple discharge or skin changes. Family history: 1.daughter : ovarian cancer 2. second daughter: cancer ? cancer 3. sister: breast cancer Hormonal history: Menarche:7 , 7 miscarrages, breast fed: yes, first live : 13 menopause: 48 BCP: 4 years hormones: none Past past surgical history: 1. stomach bypass 2. gallbladder 3. appy 4. tonsil 5. leg fracture 6. left shoulder fx 7. carotid (right) 8. colonoscopy Past Medical History; 1. ? diabetes, not treated and resolved 2. rapid heart beat/atrial fib 3. Reflux 4. history of Pulmonary embolism 5. sleep apnea 6. COPD 7. arthritis 8. HTN 9. Diarrhea 10. 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 Cardiovascular: Reports high blood pressure - Respiratory Comment: asthma, COPD - Gastrointestinal Gastrointestinal: Reports diarrhea - Genitourinary (Female) Genitourinary: Denies dysuria, Denies hematuria - Menstruation Menstruation: Reports postmenopausal - Musculoskeletal Comment: arthritis, fibromyalgia Musculoskeletal: Reports myalgias - Integumentary Integumentary: Denies pruritus, Denies rash - Neurological Comment: Carotid endarterectomy Neurological: Denies numbness, Denies weakness - Psychiatric Psychiatric: Reports anxiety - Endocrine Endocrine: Reports fatigue, Denies weight change - Hematologic/Lymphatic Comment: Plavix - Allergic/Immunologic Allergic/Immunologic: Reports seasonal allergies Objective - Vital Signs Vital signs: Vital Signs Temp 97.9 F 04/06/22 15:38 Pulse 73 04/06/22 15:38 Resp 13 04/06/22 15:38 BP 114/76 04/06/22 15:38 Pulse Ox 97 04/06/22 15:38 FiO2 Intake & Output 04/05/22 04/06/22 04/06/22 18:59 06:59 18:59 Weight 78.925 kg - Constitutional General appearance: Present: cooperative - EENT Eyes: Present: EOMI ENT: Present: hearing grossly normal - Neck Neck: Present: normal ROM - Respiratory Respiratory: bilateral: CTA - Cardiovascular Heart sounds: normal: S1, S2 - Gastrointestinal General gastrointestinal: Present: soft - Integumentary Integumentary: Present: normal turgor - Musculoskeletal Musculoskeletal: Present: gait normal - Psychiatric Psychiatric: Present: A&O x's 3, appropriate affect, intact judgment & insight - Additional findings Additional findings: Breast Exam: BRA: 40EE inspection: Bilateral grade 2/3 ptosis Palpation: Right breast: Very dense breast multiple positional exam no discrete dominant masses or nodules of concern Right axilla: No adenopathy of concern Left breast: Multi-positional exam fibrocystic changes no discrete dominant masses or nodules of concern Left axilla: No adenopathy of concern Assessment and Plan Assessment: Impression: 1. ? diabetes, not treated and resolved 2. rapid heart beat/atrial fib 3. Reflux 4. history of Pulmonary embolism 5. sleep apnea 6. COPD 7. arthritis 8. HTN 9. Diarrhea 10. gallbladder 11. Bilateral fibrocystic breast changes 12. 1120 122 left breast mammogram BIRADS 2 patient is due for bilateral mammogram in 6 months Plan: 1. Bilateral mammogram in 6 months with physician exam at that time CC: Dr. Sanz
== END ==
LOC: WWCWWP 15:32
PROVIDERS: ATTEND Surgery
DX: N60.11 Diffuse cystic mastopathy of right breast (principal); N60.12 Diffuse cystic mastopathy of left breast; I48.91 Unspecified atrial fibrillation; K21.9 Gastro-esophageal reflux disease without esophagitis; G47.33 Obstructive sleep apnea (adult) (pediatric); Z86.711 Personal history of pulmonary embolism; J44.9 Chronic obstructive pulmonary disease, unspecified; I10 Essential (primary) hypertension; M19.90 Unspecified osteoarthritis, unspecified site; R19.7 Diarrhea, unspecified; Z88.5 Allergy status to narcotic agent; Z88.0 Allergy status to penicillin; Z91.048 Other nonmedicinal substance allergy status; Z91.09 Other allergy status, other than to drugs and biological substances

== ENCOUNTER → 2022-08-24 | Outpatient (CLI) | payer MEDICARE ==
--- NOTE | 2022-08-24 11:53 | BD ---
EXAMINATION TYPE: Axial Bone Density DATE OF EXAM: 08/24/2022 CLINICAL HISTORY: 77 years old Female. ICD-10 CODE: M81.0 AGE RELATED OSTEOPOROSIS Height: 64 Weight: 173.6 FRAX RISK QUESTIONS: Alcohol (3 or more units per day): no Family History (Parent hip fracture): no Glucocorticoids (More than 3mos): no (Ex: prednisone, prednisolone, methylprednisolone, dexamethasone, and hydrocortisone). History of Fracture in Adulthood: yes Secondary Osteoporosis: 1. Type 1 Diabetes: no 2. Hyperthyroidism: no 3. Menopause before 45: yes 4. Malnutrition: no 5. Chronic liver disease: no Rheumatoid Arthritis: yes Current Tobacco Use: no RISK FACTORS HISTORY OF: History of Wrist Fracture: left arm When: age 10 Surgery to Spine/Hip(right/left)/Wrist (right/left): no Family History of Osteoporosis: yes Active: no Diet low in dairy products/other sources of calcium: no Postmenopausal woman: yes Lost more than 2 inches in height since high school: yes MEDICATIONS: Additional History: EXAM MEASUREMENTS: Bone mineral densitometry was performed using the [employer]. Bone mineral density as measured about the Lumbar spine is: ----- L1-L4(G/cm2): 0.939 T Score Values are as follows: ----- L1: -3.0 ----- L2: -2.6 ----- L3: -1.8 ----- L4: -0.7 ----- L1-L4: -2.0 Z Score Values are as follows: ----- L1: -1.7 ----- L2: -1.2 ----- L3: -0.4 ----- L4: 0.6 ----- L1-L4: -0.7 Bone mineral density : baseline Bone mineral density about the R hip (g/cm2): 0.797 Bone mineral density about the L hip (g/cm2): 0.805 T Score values are as follows: -----R Neck: -1.7 -----L Neck: -2.1 -----R Total: -1.7 -----L Total: -1.6 Z Score values are as follows: -----R Neck: 0.1 -----L Neck: -0.3 -----R Total: 0.0 -----L Total: 0.0 Bone mineral density : baseline FRAX%s: The graph provided illustrates a 22.5% chance for a major osteoporotic fx and a 6.3% chance f or the hips probability for fx in 10 years time. IMPRESSION: Osteopenia (T Score between -2.5 and -1). There is slightly increased risk of fracture and the patient may be considered for treatment. Re-Screen 2-5 years. NOTE: T-SCORE=SD OF THE YOUNG ADULT MEAN.
--- NOTE | 2022-08-25 10:37 | MM ---
Reason for Exam: Screening (asymptomatic). Last screening mammogram was performed 12 month(s) ago. Patient History: Menarche at age 7. First Full-Term at age 12. Hysterectomy at age 47. Postmenopausal. Previous Hyperplasia w/o Atypia at age 76. Estrogen for 1 year, 6 months. Patient used Hormonal Contraceptives for 8 years. 09/22/2021, Benign MG stereo VAD BX LT on the left side. 11/21/2018, Benign Core Biopsy on the left side. Sister had breast cancer, age 70. Risk Values: Ryanne 5 year model risk: 5.1%. NCI Lifetime model risk: 8.5%. Prior Study Comparison: 08/22/2021 Bilateral Screening Mammogram, [facility]. 08/25/2021 Left Diagnostic Mammogram, [facility]. 03/27/2022 Left MG 3D diag mammo w/cad LT, [facility]. Tissue Density: There are scattered fibroglandular densities. Findings: Analyzed By CAD. There are now too nearby biopsy clips in the left breast middle to posterior outer aspect. There are a few tiny benign-appearing rounded dystrophic calcifications redemonstrated right breast. There are stable 8 mm round mass in the anterior right breast upper outer aspect. There is no suspicious new group of microcalcifications or new suspicious mass in either breast. Overall Assessment: Benign, BI-RAD 2 Management: Screening Mammogram of both breasts in 1 year. A clinical breast exam by your physician is recommended on an annual basis and results should be correlated with mammographic findings. Electronically signed and approved by: Darnell Garnica M.D.
== END | disposition home or self-care (01) ==
LOC: RADMAMWWP 10:53
PROVIDERS: ATTEND Internal Medicine
DX: Z12.31 Encounter for screening mammogram for malignant neoplasm of breast (principal); M81.0 Age-related osteoporosis without current pathological fracture; Z29.9 Encounter for prophylactic measures, unspecified; M85.89 Other specified disorders of bone density and structure, multiple sites; Z78.0 Asymptomatic menopausal state; Z80.3 Family history of malignant neoplasm of breast
CPT/HCPCS: 77063; 77067; 77080

== ENCOUNTER → 2022-09-29 | Outpatient (CLI) | payer MEDICARE ==
[2022-09-29 12:38] VITALS: BP 119/59; PULSE 72; RESP 18
--- NOTE | 2022-09-29 12:53 | P.PN ---
Subjective Progress Note Date: 09/29/22 Principal diagnosis: fibrocystic breast changes Fibrocystic breast changes Payal is a 77-year-old white female status post her tachycardia biopsy of the left breast on 2 occasions. Both times were benign. The most recent was on . She underwent a bilateral mammogram on which was benign BIRADS 2. She is not complaining of any new lumps masses or nodules of concern in either breast. Ryanne risk evaluation 5 years: 5.1% We have discussed meeting with medical oncology for risk reduction chemoprophylaxis and at this time the patient has declined. NCI lifetime risk: 8.5% The patient does not have any pain in her breast. She has no masses in her br east. She has no nipple discharge or skin changes. Family history: 1.daughter : ovarian cancer 2. second daughter: cancer ? cancer 3. sister: breast cancer Hormonal history: Menarche:7 , 7 miscarrages, breast fed: yes, first live : 13 menopause: 48 BCP: 4 years hormones: none Past past surgical history: 1. stomach bypass 2. gallbladder 3. appy 4. tonsil 5. leg fracture 6. left shoulder fx 7. carotid (right) 8. colonoscopy Past Medical History; 1. ? diabetes, not treated and resolved 2. rapid heart beat/atrial fib 3. Reflux 4. history of Pulmonary embolism 5. sleep apnea 6. COPD 7. arthritis 8. HTN 9. Diarrhea 10. 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 Cardiovascular: Reports high blood pressure - Respiratory Comment: asthma, COPD - Gastrointestinal Gastrointestinal: Reports diarrhea - Genitourinary (Female) Genitourinary: Denies dysuria, Denies hematuria - Menstruation Menstruation: Reports postmenopausal - Musculoskeletal Comment: arthritis, fibromyalgia Musculoskeletal: Reports myalgias - Integumentary Integumentary: Denies pruritus, Denies rash - Neurological Comment: Carotid endarterectomy Neurological: Denies numbness, Denies weakness - Psychiatric Psychiatric: Reports anxiety - Endocrine Endocrine: Reports fatigue, Denies weight change - Hematologic/Lymphatic Comment: Plavix - Allergic/Immunologic Allergic/Immunologic: Reports seasonal allergies Objective - Vital Signs Vital signs: Vital Signs Temp Pulse 72 09/29/22 12:35 Resp 18 09/29/22 12:35 BP 119/59 09/29/22 12:35 Pulse Ox 92 L 09/29/22 12:35 FiO2 Intake & Output 09/28/22 09/29/22 09/29/22 18:59 06:59 18:59 Weight 79.832 kg - Constitutional General appearance: Present: cooperative - EENT Eyes: Present: EOMI ENT: Present: hearing grossly normal - Neck Neck: Present: normal ROM - Respiratory Respiratory: bilateral: CTA - Cardiovascular Heart sounds: normal: S1, S2 - Integumentary Integumentary: Present: normal turgor - Psychiatric Psychiatric: Present: A&O x's 3, appropriate affect, intact judgment & insight - Additional findings Additional findings: Breast Exam: BRA: 40EE inspection: Bilateral grade 2/3 ptosis Palpation: Right breast: Very dense breast multi positional exam no discrete dominant masses or nodules of concern Right axilla: No adenopathy of concern Left breast: Multi-positional exam fibrocystic changes no discrete dominant masses or nodules of concern Left axilla: No adenopathy of concern Assessment and Plan Assessment: Impression: 1. ? diabetes, not treated and resolved 2. rapid heart beat/atrial fib 3. Reflux 4. history of Pulmonary embolism 5. sleep apnea 6. COPD 7. arthritis 8. HTN 9. Diarrhea 10. gallbladder 11. Bilateral fibrocystic breast changes . 08-24-22 Bilateral mammogram BIRAD 2 Plan: 1. Bilateral mammogram in 1 year with physician exam at that time CC: Dr. Sanz
== END ==
LOC: WWCWWP 12:31
PROVIDERS: ATTEND Surgery
DX: N60.12 Diffuse cystic mastopathy of left breast (principal); N60.11 Diffuse cystic mastopathy of right breast; K21.9 Gastro-esophageal reflux disease without esophagitis; J44.9 Chronic obstructive pulmonary disease, unspecified; I10 Essential (primary) hypertension; G47.30 Sleep apnea, unspecified; M19.90 Unspecified osteoarthritis, unspecified site; R19.7 Diarrhea, unspecified; Z80.3 Family history of malignant neoplasm of breast; Z86.711 Personal history of pulmonary embolism; Z88.0 Allergy status to penicillin; Z88.5 Allergy status to narcotic agent; Z91.048 Other nonmedicinal substance allergy status

== ENCOUNTER → 2023-08-27 | Outpatient (CLI) | payer MEDICARE ==
--- NOTE | 2023-08-29 13:43 | MM ---
Reason for Exam: Screening (asymptomatic). Last screening mammogram was performed 12 month(s) ago. Patient History: Menarche at age 7. First Full-Term at age 12. Hysterectomy at age 47. Postmenopausal. Previous Hyperplasia w/o Atypia at age 76. Estrogen for 1 year, 6 months. Patient used Hormonal Contraceptives for 8 years. 09/22/2021, Benign MG stereo VAD BX LT on the left side. 11/21/2018, Benign Core Biopsy on the left side. Sister had breast cancer, age 70. Risk Values: Ryanne 5 year model risk: 5.0%. NCI Lifetime model risk: 7.6%. Prior Study Comparison: 08/25/2021 Left Diagnostic Mammogram, [facility]. 03/27/2022 Left MG 3D diag mammo w/cad LT, [facility]. 08/24/2022 Bilateral MG 3D screening mammo w/cad, [facility]. Tissue Density: The breasts are heterogeneously dense, which may obscure small masses. Findings: Analyzed By CAD. There is no suspicious group of microcalcifications or new suspicious mass in either breast. Overall Assessment: Benign, BI-RAD 2 Management: Screening Mammogram of both breasts in 1 year. . Patient should continue monthly self-breast exams. A clinical breast exam by your physician is recommended on an annual basis. This exam should not preclude additional follow-up of suspicious palpable abnormalities. Note on Ryanne scores and lifetime risk: 1. A Ryanne score greater than 3% is considered moderate risk. If this is the case, consider specialist referral to assess eligibility for a risk reducing agent. 2. If overall lifetime risk for the development of breast cancer is 20% or higher, the patient may qualify for future screening with alternating mammogram and breast MRI. Electronically signed and approved by: Griffin Parks M.D. Radiologis
== END | disposition home or self-care (01) ==
LOC: RADMAMWWP 14:17
PROVIDERS: ATTEND Surgery
DX: Z12.31 Encounter for screening mammogram for malignant neoplasm of breast (principal); Z80.3 Family history of malignant neoplasm of breast; Z78.0 Asymptomatic menopausal state
CPT/HCPCS: 77063; 77067

== ENCOUNTER → 2023-08-27 | Outpatient (CLI) | payer MEDICARE ==
[2023-08-27 18:22] LABS: Basophils # (A) 0.09 X 10*3/uL (0.00-0.10); Basophils % (A) 0.7 %; Eosinophils # (A) 0.28 X 10*3/uL (0.04-0.35); Eosinophils % (A) 2.1 %; HCT 38.3 % (37.2-46.3); Lymphocytes # (A) 2.84 X 10*3/uL (0.90-5.00); Lymphocytes % (A) 21.4 %; MCH 28.9 pg (27.0-32.0); MCHC 31.3 g/dL (32.0-37.0); MCV 92.3 FL (80.0-97.0); Mean Platelet Volume 9.7 FL (9.5-12.2); Monocytes # (A) 0.77 X 10*3/uL (0.20-1.00); Monocytes % (A) 5.8 %; NRBC Per 100 WBC 0 X 10*3/uL (0.00-0.01); Neutrophils # (A) 9.25 X 10*3/uL (1.80-7.70); Neutrophils % (A) 69.5 %; Platelet Count 270 X 10*3/uL (140-440); RBC 4.15 X 10*6/uL (4.10-5.20); RDW 13.4 % (11.5-14.5); WBC 13.29 X 10*3/uL (4.50-10.00)
[2023-08-27 19:47] LABS: Chol/HDL Ratio 3.11 Ratio; Iron 35 UG/DL (50-170); LDL Cholesterol,Calculated 39.2 mg/dL (0.0-131.0)
[2023-08-27 20:18] LABS: Vitamin B12 >3600.0 pg/mL (200.0-944.0)
[2023-08-27 20:25] LABS: ALT 25 U/L (8-44); AST 18 U/L (13-35); Albumin 4.3 g/dL (3.8-4.9); Albumin/Globulin Ratio 1.87 Ratio (1.60-3.17); Alkaline Phosphatase 73 U/L (41-126); Blood Urea Nitrogen 12.5 mg/dL (9.0-27.0); Calcium 9.1 mg/dL (8.7-10.3); Carbon Dioxide 28.2 mmol/L (21.6-31.8); Chloride 104 mmol/L (96-109); Globulin 2.3 g/dL (1.6-3.3); Glucose 102 mg/dL (70-110); Potassium 4.3 mmol/L (3.5-5.5); Sodium 143 mmol/L (135-145); Total Bilirubin <0.2 mg/dL (0.3-1.2); Total Protein 6.6 g/dL (6.2-8.2)
== END | disposition home or self-care (01) ==
LOC: LABWHC1 14:22
PROVIDERS: ATTEND Internal Medicine
DX: E53.8 Deficiency of other specified B group vitamins (principal); D50.9 Iron deficiency anemia, unspecified; E78.5 Hyperlipidemia, unspecified; Z98.84 Bariatric surgery status; R73.9 Hyperglycemia, unspecified
CPT/HCPCS: 36415; 80053; 80061; 82607; 83036; 83540; 85025

== ENCOUNTER → 2023-08-31 | Outpatient (CLI) | payer MEDICARE ==
[2023-08-31 12:00] VITALS: BP 141/79; PULSE 89; RESP 19; TEMP 97.9
--- NOTE | 2023-08-31 12:04 | P.PN ---
Subjective Progress Note Date: 08/31/23 08-31-23 Principal diagnosis: fibrocystic breast changes Payal is a 78-year-old white female status post stero-tactic biopsy of the left breast on 2 occasions. Both times were benign. The most recent was on . She underwent a bilateral mammogram on which was benign BIRADS 2. She is not complaining of any new lumps masses or nodules of concern in either breast. Ryanne risk evaluation 5 years: 5.% We have discussed meeting with medical oncology for risk reduction chemoprophylaxis and at this time the patient has declined. NCI lifetime risk: 7.6% The patient does not have any pain in her breast. She has no masses in her breast. She has no nipple discharge or skin changes. Family history: 1.daughter : ovarian cancer 2. second daughter: cancer ? cancer 3. sister: breast cancer Hormonal history: Menarche:7 , 7 miscarrages, breast fed: yes, first live : 13 menopause: 48 BCP: 4 years hormones: none Past past surgical history: 1. stomach bypass 2. gallbladder 3. appy 4. tonsil 5. leg fracture 6. left shoulder fx 7. carotid (right) 8. colonoscopy Past Medical History; 1. ? diabetes, not treated and resolved 2. rapid heart beat/atrial fib 3. Reflux 4. history of Pulmonary embolism 5. sleep apnea 6. COPD 7. arthritis 8. HTN 9. Diarrhea 10. 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 Cardiovascular: Reports high blood pressure - Respiratory Comment: asthma, COPD - Gastrointestinal Gastrointestinal: Reports diarrhea - Genitourinary (Female) Genitourinary: Denies dysuria, Denies hematuria - Menstruation Menstruation: Reports postmenopausal - Musculoskeletal Comment: arthritis, fibromyalgia Musculoskeletal: Reports myalgias - Integumentary Integumentary: Denies pruritus, Denies rash - Neurological Comment: Carotid endarterectomy Neurological: Denies numbness, Denies weakness - Psychiatric Psychiatric: Reports anxiety - Endocrine Endocrine: Reports fatigue, Denies weight change - Hematologic/Lymphatic Comment: Plavix - Allergic/Immunologic Allergic/Immunologic: Reports seasonal allergies Objective - Vital Signs Vital signs: Vital Signs Temp 97.9 F 08/31/23 11:48 Pulse 89 08/31/23 11:48 Resp 19 08/31/23 11:48 BP 141/79 08/31/23 11:48 Pulse Ox 96 08/31/23 11:48 FiO2 Intake & Output 08/30/23 08/31/23 08/31/23 18:59 06:59 18:59 Weight 79.832 kg - Constitutional General appearance: Present: cooperative - EENT Eyes: Present: EOMI ENT: Present: hearing grossly normal - Neck Neck: Present: normal ROM - Respiratory Respiratory: bilateral: CTA - Cardiovascular Heart sounds: normal: S1, S2 - Integumentary Integumentary: Present: normal turgor - Musculoskeletal Musculoskeletal: Present: gait normal - Psychiatric Psychiatric: Present: A&O x's 3, appropriate affect, intact judgment & insight - Additional findings Additional findings: Breast Exam: BRA: 40EE inspection: Bilateral grade 2/3 ptosis Palpation: Right breast: Very dense breast multi positional exam no discrete dominant masses or nodules of concern Right axilla: No adenopathy of concern Left breast: Multi-positional exam fibrocystic changes no discrete dominant masses or nodules of concern Left axilla: No adenopathy of concern Assessment and Plan Assessment: Impression: 1. ? diabetes, not treated and resolved 2. rapid heart beat/atrial fib 3. Reflux 4. history of Pulmonary embolism 5. sleep apnea 6. COPD 7. arthritis 8. HTN 9. Diarrhea 10. gallbladder 11. Bilateral fibrocystic breast changes 08-27-23 Bilateral mammogram BIRAD 2 Plan: 1. Bilateral mammogram in 1 year; August 2023 with physician exam at that time CC: Dr. Sanz
== END ==
LOC: WWCWWP 11:39
PROVIDERS: ATTEND Surgery
DX: R92.8 Other abnormal and inconclusive findings on diagnostic imaging of breast (principal); N60.11 Diffuse cystic mastopathy of right breast; N60.12 Diffuse cystic mastopathy of left breast; K21.9 Gastro-esophageal reflux disease without esophagitis; G47.30 Sleep apnea, unspecified; J44.9 Chronic obstructive pulmonary disease, unspecified; I10 Essential (primary) hypertension; I48.91 Unspecified atrial fibrillation; R19.7 Diarrhea, unspecified; M19.90 Unspecified osteoarthritis, unspecified site; K82.9 Disease of gallbladder, unspecified; Z80.3 Family history of malignant neoplasm of breast; Z86.711 Personal history of pulmonary embolism; Z88.0 Allergy status to penicillin; Z88.5 Allergy status to narcotic agent; Z91.048 Other nonmedicinal substance allergy status; Z79.02 Long term (current) use of antithrombotics/antiplatelets; Z79.899 Other long term (current) drug therapy

== ENCOUNTER → 2024-03-11 | Outpatient (CLI) | payer MEDICARE ==
--- NOTE | 2024-03-11 12:32 | CT ---
EXAMINATION TYPE: CT iac wo con CT DLP: 142.7 mGycm, Automated exposure control for dose reduction was used. 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 COMPARISON: CT neck 04/09/2016. TECHNIQUE: Multiple thin axial images were obtained through the temporal bones and internal auditory canals. Additional coronal reformatted images were obtained. No IV contrast was utilized. FINDINGS: Right Temporal Bone: External Ear: The external auditory canal is unremarkable, The tympanic membrane is present and unrem arkable. Middle Ear: The ossicles demonstrate a normal appearance. Prussak's space is clear and the scutum i s intact. There is no evidence of osseous erosion and the tegmen tympani is intact. Inner Ear: Cochlea, vestibule and semi circular canals are unremarkable. No evidence of carotid sunny l dehiscence. Two and a half turns of the cochlea are identified. The vestibular aqueduct is not enl arged. Mastoid Air Cells: The mastoid air cells are clear. The tegmen mastoideum is intact. The aditus ad an trum is clear. Internal Auditory Canal: The internal auditory canal is unremarkable. Left Temporal Bone: External Ear: The external auditory canal is unremarkable, The tympanic membrane is present and unrem arkable. Middle Ear: The ossicles demonstrate a normal appearance. Prussak's space is clear and the scutum i s intact. There is no evidence of osseous erosion and the tegmen tympani is intact. Inner Ear: Cochlea, vestibule and semi circular canals are unremarkable. No evidence of carotid sunny l dehiscence. Two and a half turns of the cochlea are identified. The vestibular aqueduct is not enl arged. Mastoid Air Cells: The mastoid air cells are clear. The tegmen mastoideum is intact. The aditus ad an trum is clear. Internal Auditory Canal: The internal auditory canal is unremarkable. Moderate mucosal thickening of the bilateral maxillary sinuses and ethmoid sinuses. Complete opacific ation of the visualized sphenoid sinuses. Hypertrophic changes surrounding the sinuses. Bilateral max illary antrostomy changes identified. IMPRESSION: 1. No abnormality identified within the bilateral internal auditory canals. 2. Severe chronic paranasal sinusitis changes. [facility], , 03/11/2024 12:30 PM
== END | disposition home or self-care (01) ==
LOC: RADCTMAIN 12:03
PROVIDERS: ATTEND Otolaryngology
DX: J32.8 Other chronic sinusitis (principal); H93.19 Tinnitus, unspecified ear
CPT/HCPCS: 70480

== ENCOUNTER → 2024-08-27 | Outpatient (CLI) | payer OTHER, BC ==
--- NOTE | 2024-08-27 14:57 | MM ---
Reason for Exam: Screening (asymptomatic). Last screening mammogram was performed 12 month(s) ago. Patient History: Menarche at age 7. First Full-Term at age 12. Hysterectomy at age 47. Postmenopausal. Previous Hyperplasia w/o Atypia at age 76. Estrogen for 1 year, 6 months. Patient used Hormonal Contraceptives for 8 years. 09/22/2021, Benign MG stereo VAD BX LT on the left side. 11/21/2018, Benign Core Biopsy on the left side. Sister had breast cancer, age 70. Risk Values: Ryanne 5 year model risk: 4.9%. NCI Lifetime model risk: 7.0%. Prior Study Comparison: 03/27/2022 Left MG 3D diag mammo w/cad LT, [facility]. 08/24/2022 Bilateral MG 3D screening mammo w/cad, [facility]. 08/27/2023 Bilateral MG 3D screening mammo w/cad, [facility]. Tissue Density: The breasts are heterogeneously dense, which may obscure small masses. Findings: Analyzed By CAD. There is no suspicious group of microcalcifications or new suspicious mass in either breast. Overall Assessment: Benign, BI-RAD 2 Management: Screening Mammogram of both breasts in 1 year. . Patient should continue monthly self-breast exams. A clinical breast exam by your physician is recommended on an annual basis. This exam should not preclude additional follow-up of suspicious palpable abnormalities. Note on Ryanne scores and lifetime risk: 1. A Ryanne score greater than 3% is considered moderate risk. If this is the case, consider specialist referral to assess eligibility for a risk reducing agent. 2. If overall lifetime risk for the development of breast cancer is 20% or higher, the patient may qualify for future screening with alternating mammogram and breast MRI. [facility], , 08/27/2024 1:43 PM. Electronically signed and approved by: Griffin Parks M.D. Radiologis
== END | disposition home or self-care (01) ==
LOC: RADMAMWWP 13:23
PROVIDERS: ATTEND Surgery
DX: Z12.31 Encounter for screening mammogram for malignant neoplasm of breast (principal); R92.333 Mammographic heterogeneous density, bilateral breasts; Z78.0 Asymptomatic menopausal state; Z92.0 Personal history of contraception; Z80.3 Family history of malignant neoplasm of breast
CPT/HCPCS: 77063; 77067

== ENCOUNTER → 2024-09-04 | Outpatient (CLI) | payer MEDICARE ==
[2024-09-04 11:52] VITALS: BP 133/83; PULSE 101; RESP 17; TEMP 97.3
--- NOTE | 2024-09-04 12:01 | P.PN ---
Subjective Progress Note Date: 09/04/24 Principal diagnosis: fibrocystic breast disease 09-04-24 Principal diagnosis: fibrocystic breast changes Payal is a 79-year-old white female status post stero-tactic biopsy of the left breast on 2 occasions. Both times were benign. The most recent was on . She underwent a bilateral mammogram on which was benign BIRADS 2. She is not complaining of any new lumps masses or nodules of concern in either breast. Ryanne risk evaluation 5 years: 4.9% We have discussed meeting with medical oncology for risk reduction chemoprophylaxis and at this time the patient has declined. NCI lifetime risk: 7% The patient does not have any pain in her breast. She has no masses in her breast. She has no nipple discharge or skin changes. Family history: 1.daughter : ovarian cancer 2. second daughter: cancer ? cancer 3. sister: breast cancer Hormonal history: Menarche:7 , 7 miscarrages, breast fed: yes, first live : 13 menopause: 48 BCP: 4 years hormones: none Past past surgical history: 1. stomach bypass 2. gallbladder 3. appy 4. tonsil 5. leg fracture 6. left shoulder fx 7. carotid (right) 8. colonoscopy Past Medical History; 1. ? diabetes, not treated and resolved 2. rapid heart beat/atrial fib 3. Reflux 4. history of Pulmonary embolism 5. sleep apnea 6. COPD 7. arthritis 8. HTN 9. Diarrhea 10. 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 Cardiovascular: Reports high blood pressure - Respiratory Comment: asthma, COPD - Gastrointestinal Gastrointestinal: Reports diarrhea - Genitourinary (Female) Genitourinary: Denies dysuria, Denies hematuria - Menstruation Menstruation: Reports postmenopausal - Musculoskeletal Comment: arthritis, fibromyalgia Musculoskeletal: Reports myalgias - Integumentary Integumentary: Denies pruritus, Denies rash - Neurological Comment: Carotid endarterectomy Neurological: Denies numbness, Denies weakness - Psychiatric Psychiatric: Reports anxiety - Endocrine Endocrine: Reports fatigue, Denies weight change - Hematologic/Lymphatic Comment: Plavix - Allergic/Immunologic Allergic/Immunologic: Reports seasonal allergies Objective - Vital Signs Vital signs: Vital Signs Temp 97.3 F L 09/04/24 11:50 Pulse 101 H 09/04/24 11:50 Resp 17 09/04/24 11:50 BP 133/83 09/04/24 11:50 Pulse Ox 94 L 09/04/24 11:50 FiO2 Intake & Output 09/03/24 09/04/24 09/04/24 18:59 06:59 18:59 Weight 81.647 kg - Constitutional General appearance: Present: cooperative - EENT Eyes: Present: EOMI ENT: Present: hearing grossly normal - Neck Neck: Present: normal ROM - Respiratory Respiratory: bilateral: CTA - Cardiovascular Rhythm: regular Heart sounds: normal: S1, S2 - Integumentary Integumentary: Present: normal turgor - Musculoskeletal Musculoskeletal: Present: gait normal - Psychiatric Psychiatric: Present: A&O x's 3, appropriate affect, intact judgment & insight - Additional findings Additional findings: Breast Exam: BRA: 40EE inspection: Bilateral grade 2/3 ptosis, fungal infection between the breast Palpation: Right breast: Very dense breast multi positional exam no discrete dominant masses or nodules of concern Right axilla: No adenopathy of concern Left breast: Multi-positional exam fibrocystic changes no discrete dominant masses or nodules of concern Left axilla: No adenopathy of concern Assessment and Plan Assessment: Impression: 1. ? diabetes, not treated and resolved 2. rapid heart beat/atrial fib 3. Reflux 4. history of Pulmonary embolism 5. sleep apnea 6. COPD 7. arthritis 8. HTN 9. Diarrhea 10. gallbladder 11. Bilateral fibrocystic breast changes 12. 08-27-23 Bilateral mammogram BIRAD 2 13. fungal infection between the breast Plan: 1. Bilateral mammogram in 1 year; August 2025 with physician exam at that time 2. nystatin to affected area BID CC: Dr. Sanz
== END ==
LOC: WWCWWP 11:36
PROVIDERS: ATTEND Surgery
DX: N60.11 Diffuse cystic mastopathy of right breast (principal); N60.12 Diffuse cystic mastopathy of left breast; I10 Essential (primary) hypertension; I48.91 Unspecified atrial fibrillation; K21.9 Gastro-esophageal reflux disease without esophagitis; G47.30 Sleep apnea, unspecified; J44.9 Chronic obstructive pulmonary disease, unspecified; M19.90 Unspecified osteoarthritis, unspecified site; B37.89 Other sites of candidiasis; R00.0 Tachycardia, unspecified; R19.7 Diarrhea, unspecified; Z86.711 Personal history of pulmonary embolism; Z88.0 Allergy status to penicillin; Z88.5 Allergy status to narcotic agent; Z91.048 Other nonmedicinal substance allergy status; Z91.09 Other allergy status, other than to drugs and biological substances